=== PATIENT | male | born 1970 | race Caucasian/White ===

== ENCOUNTER 2018-01-09 23:15 | Emergency (ER) | payer OTHER ==
[~2018-01-09] VITALS: Ht 180.3 cm; Wt 92.5 kg
[~2018-01-09 23:15] MED LIST: CEPH500 PO; CODACE30 PO; CYCL10 PO; IBUP800 PO; METR500 PO; NAPR550 PO; OXYACE5T PO; Percocet 5-3251 EACH PO
[2018-01-10] MEDS ORDERED: CEPH500 PO (02:26)
[2018-01-10] MEDS ORDERED: Neurontin 100100 MG PO (02:26)
== END 2018-01-10 02:47 | disposition home or self-care (01) ==
LOC: ER 23:15
DX: G89.18 Other acute postprocedural pain (principal); M54.5 Low back pain; R20.2 Paresthesia of skin; Z79.899 Other long term (current) drug therapy
CPT/HCPCS: 51701; 51798; 96361; 96372; 96374; 99284; J1170; J7030

== ENCOUNTER 2025-10-20 06:53 | Day surgery (SDC) | payer BC, OTHER ==
[2025-10-20] VITALS (21 sets, daily range): BP systolic 113–147; BP diastolic 84–102
[~2025-10-20] VITALS: Ht 175.3 cm; Wt 96.1 kg
[~2025-10-20 06:53] MED LIST changes: +MOME.1TO; +Neurontin 100100 MG PO
[2025-10-20] MEDS ORDERED: TREMFYA100 MG/1 M SQ (07:05)
--- NOTE | 2025-10-20 07:53 | NUR ---
10/20/25 0753 Kathy Cruz COLONOSCOPE: [id number]
--- NOTE | 2025-10-20 08:03 | NUR ---
Patient States Post-Procedure ride home has been arranged. Patient confirms NPO status and agrees with scheduled surgery. Patient states colon prep results clear. Pre-Op teaching done. Pt verbalizes understanding.
--- NOTE | 2025-10-20 09:01 | NUR ---
Patient up to Ambulate independently. Gait steady. Discharge instructions reviewed with patient. Patient verbalizes understanding. Copy given to patient to take home. Discharged via wheelchair to private car for ride home. PT C/O 03/28 IN PERIUMBILCAL AREA. PT HAS A HERNIA THAT DR. GUSMAN IS GOING TO REPAIR NEXT WEEK. PT BP IS HIGH. OK TO D/C TO HOME THIS IS NEAR IS BASELINE. PT ENCOURAGED TO MONITOR BP AT HOME AND MAKE APPT. W/ A PCP TO DISCUSS TX IF NEEDED.
== END 2025-10-20 09:03 | disposition home or self-care (01) ==
LOC: ORSCMMR 06:53 → ORD 08:00 → ORSCMMR 09:03
PROVIDERS: Surgery
PROC: 0DBH8ZX Excision of Cecum, Via Natural or Artificial Opening Endoscopic, Diagnostic (ICD-10-PCS; principal; 2025-10-20 08:00)
DX: R19.4 Change in bowel habit (principal); D12.0 Benign neoplasm of cecum; K57.30 Diverticulosis of large intestine without perforation or abscess without bleeding
CPT/HCPCS: 88305; J2704; J7120

== ENCOUNTER 2025-10-27 07:17 | Day surgery (SDC) | payer BC, OTHER ==
[2025-10-27] VITALS (8 sets, daily range): BP systolic 128–145; BP diastolic 89–99
[~2025-10-27] VITALS: Ht 179 cm; Wt 97.0 kg
[~2025-10-27 07:17] MED LIST changes: +HYDROCORTISONE30 GM TOP; -MOME.1TO; +MOME.1TO TOP; +TREMFYA100 MG/1 M SQ
[2025-10-27] MEDS ORDERED: CeFAZolin Sodium 2,000 MG in NS 100 ML IV SCH (08:00)
--- NOTE | 2025-10-27 08:09 | NUR ---
Ambulatory in Day Surgery History, Chart, Medications and Allergies reviewed before start of procedure.Patient confirms NPO status and agrees with scheduled surgery. Patient reports completing Chlorhexadine shower X2 prior to admission to hospital.Surgical site prepped with 2% Chlorhexidine cloth wipe. Patient States Post-Procedure ride home has been arranged WITH .
[2025-10-27] MEDS ORDERED: Bupivacaine 0.5% HCl 5 MG/ML 30MLVIAL ONE (08:13)
[2025-10-27] MEDS ORDERED: FentaNYL Citrate 50 MCG/ML 2 ML Injection ONE (08:40)
[2025-10-27] MEDS ORDERED: Dexamethasone Sod Phos 10 MG/ML 1ML VIAL ONE (08:41)
[2025-10-27] MEDS ORDERED: Rocuronium Bromide 10 MG/ML 5ML Injection IV ONE ×2 (08:41→09:08)
[2025-10-27] MEDS ORDERED: Ondansetron HCl 2 MG / ML 2ML Vial ONE (08:41)
[2025-10-27] MEDS ORDERED: Ketorolac Tromethamine 30mg Vial ONE (09:08)
[2025-10-27] MEDS ORDERED: HYDROmorphone HCl/Pf 1MG SYR IV PRN (09:15)
[2025-10-27] MEDS ORDERED: Ondansetron HCl 2 MG / ML 2ML Vial IV PRN (09:20)
[2025-10-27] MEDS ORDERED: FentaNYL Citrate 50 MCG/ML 2 ML Injection IV PRN ×2 (09:20)
[2025-10-27] MEDS ORDERED: Labetalol HCL 5 MG/ML 4ML Injection (Single Dose) IV PRN (09:20)
[2025-10-27] MEDS ORDERED: Sugammadex Sodium 200 MG/2ML SDV (100 MG/ML) ONE (09:28)
[2025-10-27] MEDS ORDERED: HYDROcodone 5-APAP 325 TAB PO PRN (09:45)
[2025-10-27] MEDS ORDERED: HYDROmorphone HCl/Pf 1MG SYR ONE (09:54)
--- NOTE | 2025-10-27 10:44 | NUR ---
Patient States Post-Procedure ride home has been arranged. Discharged via wheelchair to private car for ride home. Patient States Post-Procedure ride home has been arranged. Discharge instructions reviewed with patient. Patient verbalizes understanding. Copy given to patient to take home. PT MEDICATED WITH 1 NORCO 5/
== END 2025-10-27 23:17 | disposition home or self-care (01) ==
LOC: ORSCMMR 07:17 → ORD 07:30 → ORSCMMR 08:30
PROVIDERS: Surgery
PROC: 0WQF0ZZ Repair Abdominal Wall, Open Approach (ICD-10-PCS; principal; 2025-10-27 08:30)
DX: K42.9 Umbilical hernia without obstruction or gangrene (principal)
CPT/HCPCS: A9270; J0690; J1100; J1171; J1885; J2405; J2704; J3010; J7120